=== PATIENT | female | born 1970 | race Asian ===

== ENCOUNTER 2020-09-01 03:21 | Emergency (ER) | payer OTHER, SELFPAY ==
--- NOTE | 2020-09-01 03:41 | ED.GENADULT ---
HPI - General Adult General Chief complaint: Nausea/Vomiting/Diarrhea Stated complaint: states has food poisoning/diarrhea Time Seen by Provider: 09/01/20 03:29 Source: patient Mode of arrival: Ambulatory Limitations: no limitations History of Present Illness HPI narrative: Patient is a 49-year-old female here for evaluation of nausea vomiting and diarrhea. States that all of her symptoms started approximately 1000 hours last evening. She has had multiple episodes of vomiting and diarrhea since then. No blood in her vomit or in her stool. No recent travel. No recent antibiotic use. No other individuals in her family are sick. She did eat out last evening and thought that potentially she ate something bad at dinner last evening. She is having some abdominal cramping around the time of the vomit and diarrhea but otherwise her abdominal discomfort is fairly minimal. Denies any urinary symptoms. Has not tried anything for symptoms prior to arrival. Review of Systems Constitutional Constitutional: Denies fever(s) Cardiovascular Cardiovascular: Denies chest pain and Denies dyspnea Respiratory Respiratory: Denies dyspnea Gastrointestinal Gastrointestinal: Reports abdominal pain, Reports diarrhea, Reports nausea and Reports vomiting Musculoskeletal Musculoskeletal: Denies arthralgias and Denies myalgias Integumentary/Breasts Skin/Breast: Denies rash Neurologic Neurologic: Denies behavioral changes Psychiatric Psychiatric: Denies anxiety and Denies behavioral changes Hematologic/Lymphatic On Anticoagulants: No Patient History Medical History Healthy adult Social History Smoking Status: Never smoker Exam Const General: cooperative and comfortable Limitations: mental status not altered [facility] Head: normal to inspection and normocephalic Resp Effort & Inspection: normal respiratory effort Auscultation: clear to auscultation bilaterally Cardio Rate: regular rate Rhythm: regular rhythm GI Inspection: non-distended Palpation: soft, No firm and No tender Skin Lesions: no lesions Rashes: no rashes Neuro General: patient alert and patient awake Cognition: normal cognition Speech: speech normal Extrem General: normal to inspection and capillary refill normal Psych Appearance: grossly normal and well kempt Course Orders Ordered: Discontinued Medications Sodium Chloride (Normal Saline 0.9%) 1,000 mls @ 1,000 mls/hr IV BOLUS ONE Stop: 09/01/20 04:38 Last Admin: 09/01/20 03:51 Dose: 1,000 mls/hr Documented by: ELLEN Ondansetron HCl (Ondansetron 4 Mg/2 Ml Inj) 4 mg IV NOW ONE Stop: 09/01/20 03:40 Last Admin: 09/01/20 03:51 Dose: 4 mg Documented by: ELLEN Ondansetron HCl (Ondansetron 4 Mg Odt Prepack) 1 bottle MISC SEEINSTR ONE Stop: 09/01/20 04:54 Medical Decision Making MDM Narrative Medical decision making narrative: Patient has a benign abdominal exam. She is afebrile. Feels better and tolerated oral fluids after IV Zofran. No recent travel. No recent antibiotic use. No indication for antibiotics. Will send home with prescription for Zofran and return precautions. She expressed understanding and agreement. Discharge Plan Departure Patient Disposition: Home Clinical Impression: Nausea & vomiting, Diarrhea Instructions: Diarrhea, Nausea and Vomiting-Adult Activity Restrictions/Additional Instructions: Use the vomiting medication as needed and as directed. Be sure to increase your fluid intake the drinking small amounts for longer periods of time. Return to the emergency department for any new or worsening symptoms
[2020-09-01 03:45] VITALS: BMI 21.9
[2020-09-01] MEDS: SODIUM CHLORIDE 0.9% 1,000 ML 1000 ML IV (03:51)
[2020-09-01] MEDS: ONDANSETRON 4 MG/2 ML INJ IV (03:51)
[2020-09-01 05:03] VITALS: BP 133/73; PULSE 73; RESP 20; O2SAT 97
[2020-09-01] MEDS: ONDANSETRON 4 MG ODT PREPACK 1 BOTTLE MISC (05:04)
== END 2020-09-01 05:13 | disposition home or self-care (01) ==
PROVIDERS: Emergency Provider Emergency Medicine
DX: R11.2 Nausea with vomiting, unspecified (principal); R19.7 Diarrhea, unspecified
CPT/HCPCS: 36415; 96361; 96374; 99284; J2405

== ENCOUNTER 2021-03-13 22:29 | Emergency (ER) | payer OTHER, SELFPAY ==
[2021-03-13 22:31] VITALS: BP 148/85; PULSE 71; RESP 18; TEMP 36.4; O2SAT 100
[2021-03-13] MEDS: PROPARACAINE 0.5% OPHTH SOL 1 DROPS EYE-RIGHT (22:41)
--- NOTE | 2021-03-14 00:08 | ED_ITS ---
HPI - Eye Problem General Chief complaint: Eye Problems Stated complaint: RIGHT EYE PAIN RED Time Seen by Provider: 03/14/21 00:07 Source: patient Mode of arrival: Ambulatory Limitations: no limitations History of Present Illness HPI Narrative: This is a 50-year-old female who states she began have right eye pain about 10:00 a.m. on 03/13/2021. It has been slowly worsening as the day goes by. She does not notice any acute vision changes. Patient wears reader is a for glasses. She does not for glasses normally. No contact. She does not recall any trauma, injury or foreign bodies in her eye. She does wear of any scratches. Patient has not had any discharge, she has not appreciate any facial redness. She has not any irritation or redness to the eyeball itself. She denies any pain in the left she has not had similar symptoms in past. She states she is otherwise healthy except for history of diabetes. No past eye surgeries. No allergies to medications. She has an appointment to see an eye doctor in 2 weeks to establish but does not have a local child care centre director yet. Review of Systems Review of Systems ROS Unobtainable: All systems reviewed & are unremarkable except as noted in HPI and below Patient History Medical History Healthy adult Social History Smoking Status: Never smoker Smoking Status: Never smoker alcohol intake frequency: 0-2 drinks per day Substance Use Type: does not use Exam Narrative Exam Narrative: GEN: well nourished, well appearing female, alert and oriented x 3, patient appears to be in mild distress. HEENT: Atraumatic, pupils are equal round reactive to light, positive for photophobia on the right, extraocular movements are intact, nares are clear, TMs are clear with no fluid, there is no conjunctival pallor. Throat is clear without any exudates, erythema, tonsillar enlargement or uvular deviation HEART: Regular rate and rhythm without murmur, clicks, rubs. LUNGS:Lungs clear to auscultation, no wheezes, rales, crackles, chest moves symmetrically Visual acuity: right [20/15], left [20/20] without correction. IOP: Right 16 mm Hg, Left 19 mm Hg General: no globe trauma Eyelids: normal inspection, eyelids everted for exam on the right. Conjunctiva/Sclera: normal inspection Corneas: normal inspection on the left. examined with fluroscein on right, patient has punctate uptake throughout he sclera but none over the cornea. No ulceration or lacerations appreciated. EOM: intact, no palsy/entrapment Pupils: PERRL, normal accomadation, pupil normal Anterior Chambers: normal inspection, no hypema Posterior: normal fundoscopic on bilaterally, difficult exam. MSCL: Non-tender, full range of motion, normal gait NEURO:CN 2-12 intact, sensation normal SKIN: No rash, erythema other skin changes noted. Initial Vital Signs Initial Vital Signs: Vital Signs Temperature 97.5 F L 03/13/21 22:31 Pulse Rate 71 03/13/21 22:31 Respiratory Rate 18 03/13/21 22:31 Blood Pressure 148/85 H 03/13/21 22:31 Pulse Oximetry 100 03/13/21 22:31 Course Orders Ordered: Discontinued Medications Fluorescein Sodium (Fluorescein 1 Mg Strip) 1 mg EYE-RIGHT NOW ONE Stop: 03/14/21 00:27 Last Admin: 03/14/21 00:35 Dose: 1 mg Documented by: NISHA Polymyxin/Trimethoprim Sulfate (Polymy B/Trimeth Ophth Prepack) 1 bottle MISC SEEINSTR ONE Stop: 03/14/21 00:45 Last Admin: 03/14/21 00:59 Dose: 1 bottle Documented by: LONNY Proparacaine HCl (Proparacaine 0.5% Ophth Shara) 1 drops EYE-RIGHT NOW ONE Stop: 03/13/21 22:35 Last Admin: 03/13/21 22:41 Dose: 1 drop Documented by: BETHANY Vital Signs Vital signs: Vital Signs - 8 hr 03/13/21 22:31 Temperature 97.5 F L Pulse Rate 71 Respiratory Rate 18 Blood Pressure 148/85 H Pulse Oximetry 100 MDM - Eye Problem MDM Narrative Medical decision making narrative: This is a 50-year-old female with pain localized to the right eye, patient has punctate uptake throughout the sclera but nothing over the cornea. Pressures are reassuring, patient does not have any purulent discharge consistent with bacterial infection but was covered with antibiotic eyedrops. Patient does have a history of diabetes. She has not established locally with Ophthalmology so was given referral for recheck and asked to shout for early as there is potential for uveitis although patient really has minimal erythema on exam. No obvious trauma, injury, laceration or ulcerations are appreciated. Return precautions were discussed. Discharge Plan Departure Patient Disposition: Home Clinical Impression: Conjunctivitis Qualifiers: Conjunctivitis type: acute Laterality: right Instructions: DI for Conjunctivitis Activity Restrictions/Additional Instructions: With the child care centre director for recheck. You can call in the morning to set up an appointment. The phone number is below. Use bacterial drops, 1-2 drops every 4 hours while awake (at least 4 times daily) You may take ibuprofen up to 800 mg every 8 hours and/or Tylenol up to a 1000 mg every 8 hours as needed for pain. You may also use a cool wet washcloth to the affected area as needed. I suspect you have a conjunctivitis but it is not clearly bacterial I would like you to be seen by the child care centre director. There are other causes such as uveitis that are possible. Please return for rapidly worsening symptoms, decrease or loss of vision, new redness, swelling of the head or face, fevers, nausea vomiting or other new or concerning symptoms. Referrals: Forest Gaona MD [Physician] -
[2021-03-14] MEDS: FLUORESCEIN 1 MG STRIP EYE-RIGHT (00:35)
[2021-03-14] MEDS: POLYMY B/TRIMETH OPHTH PREPACK 1 BOTTLE MISC (00:59)
== END 2021-03-14 01:03 | disposition home or self-care (01) ==
PROVIDERS: Emergency Provider Emergency Medicine
DX: H10.31 Unspecified acute conjunctivitis, right eye (principal)
CPT/HCPCS: 99282

== ENCOUNTER 2021-08-18 00:09 | Emergency (ER) | payer OTHER, SELFPAY ==
[2021-08-18] VITALS (13 sets, daily range): BP systolic 101–147; BP diastolic 52–89; PULSE 63–85; RESP 19–29; TEMP 36.5; O2SAT 96–100; BMI 29.6
--- NOTE | 2021-08-18 00:21 | DI.RAD.S_ITS ---
PROCEDURE: XR CHEST 2V INDICATIONS: cough, wheeze, SOB TECHNIQUE: 2 views of the chest were acquired. COMPARISON: None. FINDINGS: Surgical changes and devices: None. Lungs and pleura: Lungs are clear. No pleural effusions or pneumothorax. Mediastinum: Mediastinal contours are normal. Heart size is normal. Bones and chest wall: No suspicious bony abnormalities. Soft tissues appear unremarkable. IMPRESSION: No acute cardiopulmonary abnormality. Dictated by: Travis Palacios M.D. on 08/18/2021 at 0:47 Approved by: Travis Palacios M.D. on 08/18/2021 at 0:48
[2021-08-18 00:58] LABS: COVID19 -Nasal RAPID Negative (Negative)
[2021-08-18] MEDS: ALBUTEROL/IPRATROPIUM 3 ML AMPUL INH (01:08)
[2021-08-18 01:12] LABS: Add Manual Diff / Slide Review NO; Basophils Absolute Auto 100 /uL (0-100); Basophils Percent Auto 0.6 % (0-2); Eosinophils Absolute Auto 600 /uL (0-450); Eosinophils Percent Auto 5.1 % (2-4); Hematocrit 33.3 % (36-46); Hemoglobin 10.7 g/dL (12.0-16.0); Lymphocytes Absolute Auto 3100 /uL (1100-4500); Lymphocytes Percent Auto 27.6 % (25-40); Mean Corpuscular HGB Conc 32.2 % (30-36); Mean Corpuscular Hemoglobin 23.3 PG (26-34); Mean Corpuscular Volume 72.3 fL (80-100); Monocytes Absolute Auto 700 /uL (0-900); Monocytes Percent Auto 6.1 % (3-14); Neutrophils Absolute Auto 6800 /uL (1500-7000); Neutrophils Percent Auto 60.6 % (50-75); Platelet Count 378 X10^3/uL (150-400); Red Blood Cell Count 4.61 X10^6/uL (4.0-5.2); White Blood Cell Count 11.3 X10^3/uL (4.5-11.0)
--- NOTE | 2021-08-18 01:14 | ED_ITS ---
HPI - URI/Sore Throat General Chief Complaint: Upper Respiratory Symptoms Stated Complaint: walking phenomonia Time Seen by Provider: 08/18/21 00:11 Source: patient Mode of arrival: Ambulatory History of Present Illness HPI Narrative: 50F non smoker without any significant medical history presents with her and the chief complaint at least a week of wheezing and bronchospastic cough. She has been seen and evaluated as an outpatient and was diagnosed with walking pneumonia and has been on a Z-Kailash. She has had no fever chills and denies any productive cough. She states that with deep breath she has a persistent cough which has become increasingly worse and is keeping her awake at night. She denies any runny nose or sore throat. She denies fever or chills. She has had no nausea, vomiting or diarrhea. Related Data Previous Rx's Medication Instructions Recorded doxycycline hyclate 100 mg tablet 100 mg PO BID #20 tab 08/18/21 prednisone 10 mg tablet See Rx Instructions .ROUTE 08/18/21 .COMPLEX #30 tab Allergies Allergy/AdvReac Type Severity Reaction Status Date / Time No Known Drug Allergies Allergy Verified 08/18/21 01:07 Review of Systems Review of Systems Narrative: GENERAL: Denies chills, fatigue, malaise, fever, sweats. HEENT: Denies sinus pain, ear pain, sore throat, difficulty swallowing, dizziness. RESPIRATORY: See HPI CARDIOVASCULAR: Denies chest pain, palpitations, orthopnea, edema, GASTROINTESTINAL: Denies nausea, vomiting, abdominal pain, diarrhea, constipation, melena. : Denies dysuria, frequency, incontinence, hematuria, urinary retention. MUSCULOSKELETAL: denies weakness, joint pain, or bony pain SKIN: Denies rash, skin lesions, or other NEUROLOGIC: Denies weakness, headache, numbness, change in speech, confusion, seizures, incoordination. PSYCHIATRIC: No concerning psychosocial issues. 12 point review of systems is negative except for those stated above Patient History Medical History Healthy adult Social History Smoking Status: Never smoker Smoking Status: Never smoker alcohol intake frequency: 0-2 drinks per day Substance Use Type: does not use Exam Narrative Exam Narrative: GENERAL: [50 year old patient appears stated age. Well-developed patient, in mild distress. No significant work of breathing or tachypnea though deep breath illicits a dry hacking cough HEAD: Atraumatic. Normocephalic. EYES: Pupils equal round and reactive. Extraocular motions intact. No scleral icterus. No injection or drainage. ENT: Nose without bleeding, purulent drainage. Throat without erythema, tonsillar hypertrophy or exudate. Airway patent. NECK: Trachea midline. Non tender CARDIOVASCULAR: Regular rate and rhythm without murmurs, gallops, or rubs. RESPIRATORY: No tachypnea or hypoxemia, tight breath sounds with inspiratory and expiratory wheeze throughout. No obvious rales, rhonchi noted GASTROINTESTINAL: Abdomen soft, non-tender, nondistended. EXTREMITIES: No edema or joint tenderness. BACK: Nontender without deformity or crepitance. No flank tenderness. NEURO: AOx3. SKIN: No rash or erythema of visible areas Initial Vital Signs Initial Vital Signs: Vital Signs Pulse Rate 74 08/18/21 00:15 Respiratory Rate 29 H 08/18/21 00:15 Blood Pressure 147/89 H 08/18/21 00:15 Pulse Oximetry 99 08/18/21 00:15 Course Orders Ordered: ED Orders 08/18/21 00:13 COVID19 -Nasal swab/Pre-Proc Stat 08/18/21 00:21 XR chest 2V Stat 08/18/21 00:23 BNP [NT-proBNP (BNP-Adult 18+)] Stat CBC Auto Diff [Complete Blood Count AUTO DIFF] Stat CMP [Comprehensive Metabolic Panel] Stat D Dimer Stat Procalcitonin Stat Troponin & CK Cardiac Panel Stat Discontinued Medications Albuterol (Albuterol 2.5 Mg/3 Ml Neb (Adult)) 20 mg INH NOW ONE Stop: 08/18/21 01:49 Last Admin: 08/18/21 02:00 Dose: 20 mg Documented by: [email or web address] Albuterol (Albuterol Hfa Prepack) 1 box MISC SEEINSTR ONE Stop: 08/18/21 04:27 Last Admin: 08/18/21 04:35 Dose: 1 box Documented by: ELLEN Albuterol/Ipratropium (Albuterol/Ipratropium 3 Ml Ampul) 3 ml INH NOW ONE Stop: 08/18/21 01:02 Last Admin: 08/18/21 01:08 Dose: 3 ml Documented by: ELI Methylprednisolone (Methylprednisolone 125 Mg/2 Ml Vial) 125 mg IV NOW ONE Stop: 08/18/21 01:02 Last Admin: 08/18/21 01:30 Dose: 125 mg Documented by: ANY Vital Signs Vital signs: Vital Signs - 8 hr 08/18/21 00:15 08/18/21 00:16 08/18/21 00:30 Temperature 97.7 F Pulse Rate 74 73 76 Respiratory Rate 29 H 24 21 Blood Pressure 147/89 H 147/89 H Pulse Oximetry 99 100 99 08/18/21 00:50 08/18/21 01:00 08/18/21 01:08 Temperature Pulse Rate 70 64 73 Respiratory Rate 29 H 22 24 Blood Pressure 141/66 H 136/68 Pulse Oximetry 96 98 96 08/18/21 01:30 08/18/21 02:00 08/18/21 02:30 Temperature Pulse Rate 68 63 67 Respiratory Rate 20 21 20 Blood Pressure 113/61 120/65 107/53 L Pulse Oximetry 97 97 100 08/18/21 03:00 08/18/21 03:30 08/18/21 04:00 Temperature Pulse Rate 74 81 85 Respiratory Rate 21 20 22 Blood Pressure 108/52 L 107/52 L 109/56 L Pulse Oximetry 100 100 97 08/18/21 04:30 Temperature Pulse Rate 81 Respiratory Rate 19 Blood Pressure 101/53 L Pulse Oximetry 97 MDM - URI/Sore Throat Lab Data Result diagrams: 08/18/21 00:23 08/18/21 00:23 Labs: Lab Results 08/18/21 08/18/21 08/18/21 Range/Units 00:13 00:23 00:23 WBC 11.3 H (4.5-11.0) X10^3/uL RBC 4.61 (4.0-5.2) X10^6/uL Hgb 10.7 L (12.0-16.0) g/dL Hct 33.3 L (36-46) % MCV 72.3 L (80-100) fL MCH 23.3 L (26-34) PG MCHC 32.2 (30-36) % RDW 16.0 H (11.6-14.8) % Plt Count 378 (150-400) X10^3/uL Neut % (Auto) 60.6 (50-75) % Lymph % (Auto) 27.6 (25-40) % [place] % (Auto) 6.1 (3-14) % Eos % (Auto) 5.1 H (2-4) % Baso % (Auto) 0.6 (0-2) % Neut # (Auto) 6800 (5338-5207) /uL Lymph # (Auto) 3100 (9458-0547) /uL [place] # (Auto) 700 (0-900) /uL Eos # (Auto) 600 H (0-450) /uL Baso # (Auto) 100 (0-100) /uL D-Dimer (<230) ng/mL Sodium (137-145) mmol/L Potassium (3.4-5.1) mmol/L Chloride (98-107) mmol/L Carbon Dioxide (22-32) mmol/L BUN (7-17) mg/dL Creatinine (0.52-1.04) mg/dL Estimated GFR (>60) mL/min BUN/Creatinine Ratio (6-22) Glucose (70-100) mg/dL Calcium (8.4-10.2) mg/dL Total Bilirubin (0.2-1.3) mg/dL AST (14-36) IU/L ALT (<35) IU/L Alkaline Phosphatase (38-126) U/L Total Creatine Kinase 132 (30-135) U/L CK-MB (CK-2) 1.05 (<2.37) ng/mL CK-MB (CK-2) Rel Index 0.8 L (1.5-5.0) % Troponin I < 0.012 (0.01-0.034) ng/mL NT-Pro-B Natriuret Pep 20 (<125) pg/mL Total Protein (6.3-8.2) g/dL Albumin (3.5-5.0) g/dL Globulin (1.7-4.1) g/dL Albumin/Globulin Ratio (1.0-2.8) Procalcitonin 0.11 (<0.5) ng/mL SARS-CoV-2 (PCR) Negative (Negative) 08/18/21 08/18/21 Range/Units 00:23 00:23 WBC (4.5-11.0) X10^3/uL RBC (4.0-5.2) X10^6/uL Hgb (12.0-16.0) g/dL Hct (36-46) % MCV (80-100) fL MCH (26-34) PG MCHC (30-36) % RDW (11.6-14.8) % Plt Count (150-400) X10^3/uL Neut % (Auto) (50-75) % Lymph % (Auto) (25-40) % [place] % (Auto) (3-14) % Eos % (Auto) (2-4) % Baso % (Auto) (0-2) % Neut # (Auto) (0346-1461) /uL Lymph # (Auto) (5707-5248) /uL [place] # (Auto) (0-900) /uL Eos # (Auto) (0-450) /uL Baso # (Auto) (0-100) /uL D-Dimer < 200 (<230) ng/mL Sodium 136 L (137-145) mmol/L Potassium 3.5 (3.4-5.1) mmol/L Chloride 103 (98-107) mmol/L Carbon Dioxide 23 (22-32) mmol/L BUN 17 (7-17) mg/dL Creatinine 1.13 H (0.52-1.04) mg/dL Estimated GFR 51.2 L (>60) mL/min BUN/Creatinine Ratio 15.0 (6-22) Glucose 194 H (70-100) mg/dL Calcium 9.7 (8.4-10.2) mg/dL Total Bilirubin 0.3 (0.2-1.3) mg/dL AST 27 (14-36) IU/L ALT 15 (<35) IU/L Alkaline Phosphatase 90 (38-126) U/L Total Creatine Kinase (30-135) U/L CK-MB (CK-2) (<2.37) ng/mL CK-MB (CK-2) Rel Index (1.5-5.0) % Troponin I (0.01-0.034) ng/mL NT-Pro-B Natriuret Pep (<125) pg/mL Total Protein 8.3 H (6.3-8.2) g/dL Albumin 4.6 (3.5-5.0) g/dL Globulin 3.7 (1.7-4.1) g/dL Albumin/Globulin Ratio 1.2 (1.0-2.8) Procalcitonin (<0.5) ng/mL SARS-CoV-2 (PCR) (Negative) Imaging Data Chest x-ray: Radiologist's Impression: [address] [address] XRay Report Signed Patient: Arlene Rose MR#: [id number] : 1970 Acct:[id number] Age/Sex: 50 / F Date of Service: 08/18/21 Loc: ED Accession Number: [id number] ?? Procedure: XR chest 2V Ordering Provider: Cesar George D.O. PROCEDURE:? XR CHEST 2V ? INDICATIONS:? cough, wheeze, SOB ? TECHNIQUE:? 2 views of the chest were acquired.? ? COMPARISON:? None. ? FINDINGS:? ? Surgical changes and devices:? None.? ? Lungs and pleura:? Lungs are clear.? No pleural effusions or pneumothorax.? ? Mediastinum:? Mediastinal contours are normal.? Heart size is normal.? ? Bones and chest wall:? No suspicious bony abnormalities.? Soft tissues appear unremarkable.? ? IMPRESSION:? No acute cardiopulmonary abnormality. ? ? Dictated by: Travis Palacios M.D. on 08/18/2021 at 0:47 ? ? Approved by: Travis Palacios M.D. on 08/18/2021 at 0:48 ? [facility] Narrative Medical decision making narrative: Patient has significant improvement after above-stated therapies. She has no fever, chills nor nausea or vomiting. Chest x-ray is clear demonstrates no pneumonia. No need for supplemental oxygen. Patient and given extensi ve return precautions and questions have been answered to their apparent satisfaction Discharge Plan Departure Patient Disposition: Home Clinical Impression: Atypical pneumonia, Acute bronchospasm Instructions: Atypical Pneumonia Activity Restrictions/Additional Instructions: *You have been diagnosed with [ Bronchospasm and possible atypical pneumonia] *What to do: *Please continue to take your regular medications as directed. [x ] New medication prescriptions sent to your pharmacy: [ [facility] in [place]] [ ] New medication written as a paper prescription [ ] No new medications given *Please follow up with your primary care provider in 2-3 days, call for an appointment. Let them know you were seen in the Emergency Department and that we ask that you be seen in follow up. We will electronically transmit a record of today's note if your PCP is in our system *If you do not have a primary care provider please contact the [facility] Resource line at [phone]. They will ask some questions about your medical history and help get you set up with a doctor in the community. *Return to Emergency Department if you should have any new, worsening or concerning symptoms, such as [fever greater than 101 F, shaking chills, worsening pain, persistent vomiting or other bothersome symptoms] Prescriptions: New prednisone 10 mg tablet See Rx Instructions .ROUTE .COMPLEX Qty: 30 0RF Rx Instructions: Day 1,2,3: 40mg PO Daily Day 4,5,6: 30mg PO Daily Day 7,8,9: 20mg PO Daily Day 10,11,12: 10mg PO Daily #30 doxycycline hyclate 100 mg tablet 100 mg PO BID Qty: 20 0RF
[2021-08-18 01:24] LABS: D Dimer < 200 ng/mL (<230)
[2021-08-18 01:27] LABS: Alanine Aminotransferase 15 IU/L (<35); Albumin 4.6 g/dL (3.5-5.0); Albumin Globulin Ratio 1.2 (1.0-2.8); Alkaline Phosphatase 90 U/L (38-126); Aspartate Aminotransferase 27 IU/L (14-36); Bilirubin Total 0.3 mg/dL (0.2-1.3); Blood Urea Nitrogen 17 mg/dL (7-17); Calcium 9.7 mg/dL (8.4-10.2); Carbon Dioxide 23 mmol/L (22-32); Chloride 103 mmol/L (98-107); Creatine Kinase 132 U/L (30-135); Estimated Glomerular Filt Rate 51.2 mL/min (>60); Globulin 3.7 g/dL (1.7-4.1); Glucose 194 mg/dL (70-100); HEMOLYSIS < 15 (0-50); Potassium 3.5 mmol/L (3.4-5.1); Sodium 136 mmol/L (137-145); Total Protein 8.3 g/dL (6.3-8.2)
[2021-08-18] MEDS: methylPREDNISolone 125 MG/2 ML VIAL IV (01:30)
[2021-08-18 01:39] LABS: NT-proBNP (BNP-Adult 18+) 20 pg/mL (<125); Troponin I < 0.012 ng/mL (0.01-0.034)
[2021-08-18 01:42] LABS: CKMB % Relative Index 0.8 % (1.5-5.0); Creatine Kinase MB 1.05 ng/mL (<2.37)
[2021-08-18 01:43] LABS: Procalcitonin 0.11 ng/mL (<0.5)
[2021-08-18] MEDS: ALBUTEROL 2.5 MG/3 ML NEB (ADULT) 20 MG INH (02:00)
[2021-08-18] MEDS: ALBUTEROL HFA PREPACK 1 BOX MISC (04:35)
== END 2021-08-18 04:54 | disposition home or self-care (01) ==
PROVIDERS: Emergency Provider Emergency Medicine
DX: J18.9 Pneumonia, unspecified organism (principal); J98.01 Acute bronchospasm; Z20.822 Contact with and (suspected) exposure to COVID-19
CPT/HCPCS: 71046; 80053; 82550; 82553; 83880; 84145; 84484; 85025; 85379; 87635; 94640; 96374; 99284; C9803; J2930; J7613